=== PATIENT | male | born 1960 | race Caucasian/White ===

== ENCOUNTER 2018-11-24 10:51 | Outpatient (REF) | payer BC, SELFPAY ==
[2018-11-24 22:00] LABS: Abs Immature Grans 0.03 k/cumm (0.0-0.09); Absolute Basophil Count 0.05 k/cumm (0.0-0.2); Absolute Lymphocyte Count 1.77 k/cumm (1.2-3.4); Absolute Monocyte Count 0.73 k/cumm (0.11-0.7); Absolute Neutrophil Count 4.22 k/cumm (1.2-6.7); Basophils % 0.7; Eosinophils % 1.4; HCT 45.4 % (40.0-50.0); HGB 14.9 g/dL (13.5-17.5); Immature Grans % 0.4; Lymphocytes % 25.7; Mean Corp. HGB Concentration 32.8 g/dL (32.0-36.0); Mean Corpuscular Hemoglobin 30.8 pg (27.0-33.0); Mean Platelet Volume 10.3 fL (8.0-11.0); Monocytes % 10.6; Neutrophils % 61.2; Platelet Count 306 x1000/uL (130-400); RBC 4.83 m/cumm (4.50-6.00); RBC Distribution Width 14.2 % (11.8-14.1)
[2018-11-24 22:10] LABS: Anion Gap 11.7 mmol/L (3-11); BUN 16 mg/dL (7-18); CO2 23.3 mmol/L (21.0-32.0); CREATININE 1.05 mg/dL (0.70-1.30); Calcium 8.8 mg/dL (8.5-10.1); Calculated LDL 223 mg/dL; Chloride 106 mmol/L (98-107); Cholesterol 276 mg/dL (50-200); Glucose 101 mg/dL (70-100); HDL Cholesterol 40 mg/dL (40-60); Potassium 4.5 mmol/L (3.5-5.1); Sodium 141 mmol/L (136-145); Triglyceride 65 mg/dL (30-150)
== END 2018-11-24 11:11 ==
LOC: NCHCN 10:51
PROVIDERS: PCP Internal Medicine; Visit Provider Internal Medicine
DX: Z00.00 Encounter for general adult medical examination without abnormal findings (principal); E78.5 Hyperlipidemia, unspecified
CPT/HCPCS: 80048; 80061; 85025

== ENCOUNTER 2019-11-27 09:23 | Outpatient (REF) | payer BC, SELFPAY ==
[2019-11-27 21:31] LABS: Calculated LDL 115 mg/dL (<100); Cholesterol 174 mg/dL (<200); HDL Cholesterol 43 mg/dL (40-60); Triglyceride 83 mg/dL (<150)
== END 2019-11-27 09:43 ==
LOC: NCHCN 09:23
PROVIDERS: PCP Internal Medicine; Visit Provider Internal Medicine
DX: E78.5 Hyperlipidemia, unspecified (principal)
CPT/HCPCS: 80061

== ENCOUNTER 2020-11-20 10:16 | Outpatient (REF) | payer BC, SELFPAY ==
[2020-11-20 14:11] LABS: Albumin 3.8 g/dL (3.4-5.0); BUN 28 mg/dL (7-18); CREATININE 1.1 mg/dL (0.70-1.30); Calculated LDL 132 mg/dL (<100); Cholesterol 186 mg/dL (<200); Glucose 108 mg/dL (74-106); HDL Cholesterol 42 mg/dL (40-60); Total Protein 7.1 g/dL (6.4-8.2); Triglyceride 60 mg/dL (<150)
[2020-11-20 14:12] LABS: ALT 30 U/L (16-63); AST 20 U/L (15-37); Alkaline Phosphatase 90 U/L (46-116); Anion Gap 9.5 mmol/L (3-11); Bilirubin, Total 0.4 mg/dL (0.2-1.0); CO2 25.5 mmol/L (21.0-32.0); Chloride 106 mmol/L (98-107); Potassium 4.4 mmol/L (3.5-5.1); Sodium 141 mmol/L (136-145)
== END 2020-11-20 10:17 | disposition home or self-care (01) ==
LOC: NCHCN 10:16
PROVIDERS: PCP Internal Medicine; Visit Provider Internal Medicine
DX: E78.5 Hyperlipidemia, unspecified (principal); Z82.49 Family history of ischemic heart disease and other diseases of the circulatory system
CPT/HCPCS: 80053; 80061

== ENCOUNTER 2021-11-21 16:34 | Outpatient (REF) | payer BC, SELFPAY ==
[2021-11-21 17:55] LABS: Hemoglobin A1C 6.2 % (<5.7)
[2021-11-21 18:00] LABS: Anion Gap 10.8 mmol/L (3-11); BUN 18 mg/dL (7-18); CO2 23.2 mmol/L (21.0-32.0); CREATININE 1.1 mg/dL (0.70-1.30); Calcium 9.2 mg/dL (8.5-10.1); Calculated LDL 199 mg/dL (<100); Chloride 104 mmol/L (98-107); Cholesterol 261 mg/dL (<200); Estimated GFR 75.43 (mL/min/1.73m2); Glucose 97 mg/dL (74-106); HDL Cholesterol 44 mg/dL (40-60); Potassium 4.7 mmol/L (3.5-5.1); Sodium 138 mmol/L (136-145); Triglyceride 94 mg/dL (<150)
[2021-11-24 09:22] LABS: PSA, Screening 28.3 ng/mL (<=4.5)
== END 2021-11-21 16:35 | disposition home or self-care (01) ==
LOC: NCHCN 16:34
PROVIDERS: PCP Internal Medicine; Visit Provider Internal Medicine
DX: R03.0 Elevated blood-pressure reading, without diagnosis of hypertension (principal); R73.01 Impaired fasting glucose; E78.5 Hyperlipidemia, unspecified; Z12.5 Encounter for screening for malignant neoplasm of prostate
CPT/HCPCS: 80048; 80061; 84153; 83036

== ENCOUNTER 2021-12-25 16:46 | Outpatient (REF) | payer BC, SELFPAY ==
[2021-12-26 20:46] LABS: PSA, Diagnostic 26.2 ng/mL (<=4.5)
== END 2021-12-25 16:47 | disposition home or self-care (01) ==
LOC: NCHCN 16:46
PROVIDERS: PCP Internal Medicine; Visit Provider Internal Medicine
DX: R97.20 Elevated prostate specific antigen [PSA] (principal)
CPT/HCPCS: 84153

== ENCOUNTER 2023-05-27 16:37 | Outpatient (REF) | payer BC, SELFPAY ==
[2023-05-27 20:56] LABS: Abs Immature Grans 0.03 10^3/uL (0.0-0.06); Absolute Basophil Count 0.05 10^3/uL (0.0-0.2); Absolute Eosinophil Count 0.19 10^3/uL (0.0-0.7); Absolute Lymphocyte Count 1.03 10^3/uL (1.2-3.4); Absolute Monocyte Count 0.72 10^3/uL (0.1-0.8); Absolute Neutrophil Count 3.95 10^3/uL (1.2-6.7); Basophils % 0.8; Eosinophils % 3.2; HCT 40.8 % (40.0-50.0); HGB 13.7 g/dL (13.5-17.5); Immature Grans % 0.5; Lymphocytes % 17.3; MCH 31.5 pg (27.0-33.0); MCHC 33.6 % (32.0-36.0); MCV 94 fL (80-95); MPV 10.2 fL (8.0-11.0); Monocytes % 12.1; Neutrophils % 66.1; Platelet Count 236 10^3/uL (130-400); RBC 4.35 10^6/uL (4.36-5.78); RDW 12.8 % (11.8-14.1); RDW-SD 44.1 fL; WBC 5.97 10^3/uL (4.4-10.8)
[2023-05-27 21:16] LABS: Hemoglobin A1C 6.3 % (<5.7)
[2023-05-27 21:19] LABS: ALT 32 U/L (16-63); AST 23 U/L (15-37); Albumin 3.7 g/dL (3.4-5.0); Alkaline Phosphatase 116 U/L (46-116); Anion Gap 9.5 mmol/L (3-11); BUN 22 mg/dL (7-18); Bilirubin, Total 0.3 mg/dL (0.2-1.0); CO2 26.5 mmol/L (21.0-32.0); CREATININE 1.1 mg/dL (0.70-1.30); Calcium 9.4 mg/dL (8.5-10.1); Calculated LDL 112 mg/dL (<100); Chloride 107 mmol/L (98-107); Cholesterol 183 mg/dL (<200); Estimated GFR 74.96 (mL/min/1.73m2); Glucose 100 mg/dL (74-106); HDL Cholesterol 54 mg/dL (40-60); Potassium 4.2 mmol/L (3.5-5.1); Sodium 143 mmol/L (136-145); TSH (W/Ref FT4) 1.38 uIU/mL (0.36-3.74); Total Protein 7.4 g/dL (6.4-8.2); Triglyceride 89 mg/dL (<150)
== END 2023-05-27 16:38 | disposition home or self-care (01) ==
LOC: NCHCN 16:37
PROVIDERS: PCP Internal Medicine; Visit Provider Family Medicine
DX: E78.5 Hyperlipidemia, unspecified (principal); D64.9 Anemia, unspecified; R42 Dizziness and giddiness; R73.03 Prediabetes
CPT/HCPCS: 80053; 80061; 83036; 84443; 85025

== ENCOUNTER 2024-12-14 15:25 | Outpatient (REF) | payer MEDICARE, BC, SELFPAY ==
[2024-12-14 21:00] LABS: Anion Gap 8.2 mmol/L (3-11); BUN 20 mg/dL (7-18); CO2 25.8 mmol/L (21.0-32.0); Calcium 9.2 mg/dL (8.5-10.1); Chloride 104 mmol/L (98-107); Glucose 106 mg/dL (74-106); Potassium 4.3 mmol/L (3.5-5.1); Sodium 138 mmol/L (136-145)
[2024-12-14 21:10] LABS: Hemoglobin A1C 6.2 % (<5.7)
== END 2024-12-14 15:26 | disposition home or self-care (01) ==
LOC: NCHCN 15:25
PROVIDERS: PCP Internal Medicine; Visit Provider Family Medicine
DX: R73.03 Prediabetes (principal); E87.5 Hyperkalemia
CPT/HCPCS: 80048; 83036

== ENCOUNTER 2024-12-18 13:34 | Outpatient (REF) | payer MEDICARE, BC, SELFPAY ==
[2024-12-18 16:05] LABS: Microalb ug/mg Crea 9.7 ug/mg Cr
[2024-12-19 00:20] LABS: PSA, Diagnostic 0.2 ng/mL (<=4.5)
[2024-12-26 23:29] LABS: Testosterone, Free 30.7 pg/mL (35.0-155.0)
== END 2024-12-18 13:35 | disposition home or self-care (01) ==
LOC: NCHCN 13:34
PROVIDERS: PCP Internal Medicine; Visit Provider Family Medicine
DX: C61 Malignant neoplasm of prostate (principal); E11.9 Type 2 diabetes mellitus without complications; Z85.46 Personal history of malignant neoplasm of prostate
CPT/HCPCS: 84402; 84403; 82043; 82570; 84153